=== PATIENT | female | born 1985 | race Caucasian/White ===

== ENCOUNTER 2017-03-15 08:26 | Inpatient (IN) | payer MEDICAID, OTHER ==
[2017-03-15] MEDS ORDERED: NS 1,000 ML IV ONE ×2 (08:43→11:58)
[2017-03-15] MEDS ORDERED: ONDANSETRON 4 MG/2 ML VIAL IVP ONE (08:43)
[2017-03-15] MEDS ORDERED: LORazepam 2 MG/ML INJ IVP ONE ×4 (08:54→11:49)
--- NOTE | 2017-03-15 08:57 | EDPHY ---
H & P Time Seen by Provider: 03/15/17 08:45 HPI/ROS: CHIEF COMPLAINT: Detox HISTORY OF PRESENT ILLNESS: Patient presents from [facility] for nausea and tremor. Her last drink was yesterday at 7:00 p.m.. She presents with increasing tremor anxiety nausea and vomiting. Symptoms severe. Her last bout of sobriety was 2 years ago. Her usual drink is vodka. She has a little bit of diarrhea, she denies , her last menstrual cycle just finished. REVIEW OF SYSTEMS: Eye: no change in vision ENT: no sore throat Cardiac: no chest pain or syncope Pulmonary: no cough or SOB Abdomen: HPI Musculoskeletal: no back pain Skin: no rash Neuro: no headache or seizure Constitutional: no fever : no urinary symptoms A comprehensive 10 point review of systems is otherwise negative aside from elements mentioned in the history of present illness. PAST MEDICAL HISTORY: Alcoholism anxiety and depression Social history: Last alcohol 7:00 p.m. last night General Appearance: Alert and conversant, cooperative. Eyes: No scleral icterus. ENT, Mouth: Dry mucous membranes Respiratory: Normal respiratory effort, breath sounds equal, lungs are clear to auscultation. Cardiovascular: Regular rate and rhythm. Gastrointestinal: Abdomen is soft and non tender. Neurological: Alert and oriented x3. Normally conversant. Face symmetric, normal movement and sensation in all extremities. Very tremulous Skin: Warm and dry, no rashes. Musculoskeletal: No peripheral edema and no joint swelling. Psychiatric: Not agitated. Very anxious. Not hallucinating. Emergency Department course/MDM: Patient presents with acute alcohol withdrawal manifested by tremor and tachycardia. Ativan 2 mg IV. Labs to include chemistries and test. Additional IV ativan 2mg for persistent tremor. 1045: still mildly tremulous, additional 2mg IV ativan. 1145: still symptomatic, additional 2mg IV ativan; 8mg total. Admission to hospitalist service for treatment of alcohol withdrawal with high- dose IV Ativan required. Smoking Status: Never smoked Constitutional: Initial Vital Signs Temperature (C) 36.9 C 03/15/17 08:37 Heart Rate 114 H 03/15/17 08:37 Respiratory Rate 21 H 03/15/17 08:37 Blood Pressure 148/119 H 03/15/17 08:37 O2 Sat (%) 96 03/15/17 08:37 O2 Delivery Mode Room Air Allergies/Adverse Reactions: Penicillins Allergy (Verified 03/15/17 12:25) Hives Home Medications: Medication Instructions Recorded Escitalopram Oxalate [Lexapro] 10 mg PO DAILY 03/15/17 Medical Decision Making Differential Diagnosis: Differential for shaking considered including but not limited to hypoglycemia, alcohol withdrawal, anxiety, seizure disorder Consult/Admit Bed Type: [place] [id number] Critical Care Time: Critical care time spent by me, Dr. Samano, exclusively with the care of this patient was 30 minutes, exclusive of PA or INSURANCE VERIFICATION CLERK time and exclusive of separate procedures. The organ system at risk was neurologic and I ordered multiple doses of IV Ativan for alcohol withdrawal to stabilize the patient and prevent worsening of the patient's condition. - Data Points Laboratory Results: Laboratory Results 03/15/17 08:52 03/15/17 08:52 03/15/17 03/15/17 03/15/17 08:52 08:52 08:52 WBC 3.65 10^3/uL L 10^3/uL (3.80-9.50) RBC 5.43 10^6/uL H 10^6/uL (4.18-5.33) Hgb 17.0 g/dL H g/dL (12.6-16.3) Hct 47.9 % H % (38.0-47.0) MCV 88.2 fL fL (81.5-99.8) MCH 31.3 pg pg (27.9-34.1) MCHC 35.5 g/dL g/dL (32.4-36.7) RDW 13.6 % % (11.5-15.2) Plt Count 410 10^3/uL H 10^3/uL (150-400) MPV 9.1 fL fL (8.7-11.7) Neut % (Auto) 63.1 % % (39.3-74.2) Lymph % (Auto) 26.0 % % (15.0-45.0) [place] % (Auto) 9.0 % % (4.5-13.0) Eos % (Auto) 0.3 % L % (0.6-7.6) Baso % (Auto) 1.1 % % (0.3-1.7) Nucleat RBC Rel Count 0.0 % % (0.0-0.2) Absolute Neuts (auto) 2.30 10^3/uL 10^3/uL (1.70-6.50) Absolute Lymphs (auto) 0.95 10^3/uL L 10^3/uL (1.00-3.00) Absolute Monos (auto) 0.33 10^3/uL 10^3/uL (0.30-0.80) Absolute Eos (auto) 0.01 10^3/uL L 10^3/uL (0.03-0.40) Absolute Basos (auto) 0.04 10^3/uL 10^3/uL (0.02-0.10) Absolute Nucleated RBC 0.00 10^3/uL 10^3/uL (0-0.01) Immature Gran % 0.5 % % (0.0-1.1) Immature Gran # 0.02 10^3/uL 10^3/uL (0.00-0.10) Sodium 141 mEq/L mEq/L (134-144) Potassium 3.9 mEq/L mEq/L (3.5-5.2) Chloride 101 mEq/L mEq/L (97-110) Carbon Dioxide 19 mEq/l L mEq/l (22-31) Anion Gap 21 mEq/L H mEq/L (8-16) BUN 11 mg/dL mg/dL (7-23) Creatinine 0.6 mg/dL mg/dL (0.6-1.0) Estimated GFR > 60 Glucose 89 mg/dL mg/dL (70-100) Calcium 10.1 mg/dL mg/dL (8.5-10.4) Beta HCG, Qual NEGATIVE Medications Given: Discontinued Medications Chlordiazepoxide (Librium 25 Mg Prepack#6) 1 btl [facility] ONE Stop: 03/15/17 09:02 Last Admin: 03/15/17 11:56 Dose: Not Given Sodium Chloride (Ns) 1,000 mls @ 0 mls/hr IV ONCE ONE PRN Reason: Wide Open Stop: 03/15/17 08:44 Last Admin: 03/15/17 09:04 Dose: 1,000 mls Sodium Chloride (Ns) 1,000 mls @ 0 mls/hr IV ONCE ONE PRN Reason: Wide Open Stop: 03/15/17 11:59 Last Admin: 03/15/17 11:58 Dose: 1,000 mls Lorazepam (Ativan Injection) 2 mg IVP EDNOW ONE Stop: 03/15/17 08:55 Last Admin: 03/15/17 09:05 Dose: 2 mg Lorazepam (Ativan Injection) 2 mg IVP EDNOW ONE Stop: 03/15/17 09:37 Last Admin: 03/15/17 09:44 Dose: 2 mg Lorazepam (Ativan Injection) 2 mg IVP EDNOW ONE Stop: 03/15/17 10:46 Last Admin: 03/15/17 10:51 Dose: 2 mg Lorazepam (Ativan Injection) 2 mg IVP EDNOW ONE Stop: 03/15/17 11:50 Last Admin: 03/15/17 11:53 Dose: 2 mg Ondansetron HCl (Zofran) 4 mg IVP EDNOW ONE Stop: 03/15/17 08:44 Last Admin: 03/15/17 09:02 Dose: 4 mg Departure - Departure Disposition: Home, Routine, Self-Care Clinical Impression: Alcohol withdrawal Qualifiers: Complication of substance-induced condition: uncomplicated Qualified Code(s): F10.230 - Alcohol dependence with withdrawal, uncomplicated Condition: Serious
[2017-03-15] MEDS ORDERED: CHLORDIAZEPOXIDE 25MG PREPK#6 BTL TAKEHOME ONE (09:01)
[2017-03-15 09:20] LABS: % IMMATURE GRANULYOCYTES 0.5 % (0.0-1.1); ABSOLUTE IMMATURE GRANULOCYTES 0.02 10^3/uL (0.00-0.10); ADD DIFF? NO; ADD MORPH? NO; ADD SCAN? NO; ATYPICAL LYMPHOCYTE FLAG 0 (0-99); FRAGMENT RBC FLAG 0 (0-99); HEMATOCRIT 47.9 % (38.0-47.0); LEFT SHIFT FLG 0 (0-99); LIPEMIA HEMOLYSIS FLAG 90 (0-99); MEAN CELL HEMOGLOBIN 31.3 pg (27.9-34.1); MEAN CELL HEMOGLOBIN CONCENTR. 35.5 g/dL (32.4-36.7); MEAN CELL VOLUME 88.2 fL (81.5-99.8); MEAN PLATELET VOLUME 9.1 fL (8.7-11.7); PLATELET CLUMPS FLAG 0 (0-99); PLATELET COUNT 410 10^3/uL (150-400); RED BLOOD CELL COUNT 5.43 10^6/uL (4.18-5.33); RED CELL DISTRIBUTION WIDTH 13.6 % (11.5-15.2)
[2017-03-15 09:28] LABS: ANION GAP 21 mEq/L (8-16); CALCIUM 10.1 mg/dL (8.5-10.4); CARBON DIOXIDE 19 mEq/l (22-31); CHLORIDE 101 mEq/L (97-110); CREATININE 0.6 mg/dL (0.6-1.0); GLOMERULAR FILTRATION RATE > 60; GLUCOSE 89 mg/dL (70-100); POTASSIUM 3.9 mEq/L (3.5-5.2); SODIUM 141 mEq/L (134-144)
[2017-03-15] MEDS ORDERED: ONDANSETRON DISINTEGRATING 4 MG TAB PO PRN (14:11)
[2017-03-15] MEDS ORDERED: ONDANSETRON 4 MG/2 ML VIAL IVP PRN (14:11)
--- NOTE | 2017-03-15 14:20 | PDGENHP ---
History and Physical History and Physical: HISTORY AND PHYSICAL CC:Alcohol withdrawal sent from [facility] HISTORY: This patient has previous history of alcohol use, alcohol withdrawal, and sobriety. She has been drinking heavily lately. 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 [facility] for attempted detoxification, but was having too much tachycardia and tremor and they feared she would have bed withdrawal and she was sent to the ER. In the ER she received 9 mg of Ativan but is still having significant symptoms of withdrawal feeling very anxious. She has not been overtly confused and hallucinating. She has been drinking vodka in large amounts on a daily basis unknown quantity. She uses no street drugs or anything of that she might withdrawal from. her last drink of alcohol was last evening Her only other symptoms recently are a illness approximately 1 week ago that involved some nausea vomiting cough and fever and those symptoms are largely resolved though she does not have her appetite back to normal yet. No diarrhea no abdominal pain. 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 I have reviewed the list and ordered appropriate medicines. PHYSICAL EXAMINATION: Vital Signs: some hypertension and tachycardia, respirations good no fever Scabbler: sinus tachycardia Examination: General: alert, oriented, good mentation, fairly anxious Neurologic: There is still some tremor which is mild at this time, no confusion or delusions or hallucinations at this time; normal speech/language, normal animal nutritionist , no focal weakness Skin: warm, dry, good color, no rash HEENT: normal Neck: no mass or jvd Resps: relaxed Lungs: clear breath sounds Heart: tachycardic, regular, no murmur Abdomen: soft, nondistended, nontender, +BS, no mass Upper Extremities: normal Lower Extremities: no edema, warm No Bleeding or bruising IV site: looks normal LABORATORY DATA: some evidence of hemoconcentration, CO2 is slightly low, otherwise unremarkable blood test results ASSESSMENT: - acute alcohol withdrawal, uncontrolled with benzodiazepine at the [facility], and uncontrolled after significant benzodiazepines here in the emergency room -Alcoholism -Suspected thiamine deficiency -Chronic depression on antidepressant medication PLANS: - admission to the icu -IV hydration -Will be can Precedex drip at this time -Benzodiazepine for seizure suppression -Thiamin replacement -Diet and ambulation as able with assistance from nursing staff -Electrolyte replacements -DVT prophylaxis I have reviewed the patient's case in detail with Dr. Srinath Samano
[2017-03-15] MEDS ORDERED: PROTOCOL MAGNESIUM 1 DOSE IV PRN (14:24)
[2017-03-15] MEDS ORDERED: PROTOCOL POTASSIUM 1 DOSE MISC PRN (14:24)
[2017-03-15] MEDS: NS W/ 20 KCl/L 1,000 ML IV SCH (14:30)
[2017-03-15] MEDS: DEXMEDETOMIDINE HCL 400 MCG in NS 100 ML IV SCH ×2 (14:30→23:33)
[2017-03-15] MEDS: LORazepam 1 MG TAB PO SCH ×2 (17:37→23:33)
--- NOTE | 2017-03-15 18:15 | GCON ---
[f rep st] CONSULTATION POOL INSTALLER CONSULTATION REASON FOR ADMISSION: Alcohol withdrawal. HISTORY: The patient is a 32-year-old white female with a past medical history of depression and al coholism. She presents with withdrawals. She entered [facility] today for attempted withdrawal of alcohol ; however, she became tachycardic and tremulous, was sent to the emergency room, where she was subse quently admitted to the intensive care unit. Currently, she is somewhat somnolent on a Precedex dri p. PAST MEDICAL HISTORY: Significant for depression, alcoholism. ALLERGIES: No known allergies to medication. SOCIAL HISTORY: No history of tobacco use. Heavy alcohol use, particularly vodka. 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 PHYSICAL EXAM: VITAL SIGNS: Blood pressure is 129/79, pulse 89, respirations 24, temperature 37.0, oxygen saturation 92% on room air. GENERAL: She is a well-developed, well-nourished, 32-year-old white female who is somnolent but arousable. HEENT: Eyes KRISTOPHER, EOMI. Throat shows no erythema or tonsillar hypertrophy. NECK: Supple. There is no cervical adenopathy. HEART: Regular rate and r hythm without murmurs, rubs, or gallops. LUNGS: Clear to auscultation. No wheeze or rhonchi. ABD OMEN: Soft, nontender. Bowel sounds are present in all 4 quadrants. EXTREMITIES: No clubbing, cy anosis or edema. LABORATORIES: White count 3.6, hemoglobin 17, hematocrit 47, platelet count 410. Sodium 141, potas sium 3.9, chloride 101, CO2 is 19, BUN 11, creatinine 0.6, glucose is 89. IMPRESSION: 1. Acute alcohol withdrawals. 2. History of alcoholism. 3. History of depression. RECOMMENDATIONS: 1. Agree with current CIWA protocol. 2. We will give Precedex. 3. DVT and PE prophylaxis. 4. Stress ulcer prophylaxis. 5. Adequate nutrition. /[id number]/MODL
[2017-03-15 18:42] LABS: POTASSIUM 3.8 mEq/L (3.5-5.2)
[2017-03-15] MEDS ORDERED: POTASSIUM Cl (KCl) 100 ML IV SCH (19:37)
[2017-03-16] MEDS: ACETAMINOPHEN 325 MG TAB PO PRN ×2 (03:04→08:39)
[2017-03-16 05:20] VITALS: O2SAT 97
[2017-03-16 05:37] LABS: % IMMATURE GRANULYOCYTES 0.3 % (0.0-1.1); ABSOLUTE IMMATURE GRANULOCYTES 0.01 10^3/uL (0.00-0.10); ADD DIFF? NO; ADD MORPH? NO; ADD SCAN? NO; ATYPICAL LYMPHOCYTE FLAG 0 (0-99); FRAGMENT RBC FLAG 0 (0-99); HEMATOCRIT 37.8 % (38.0-47.0); HEMOGLOBIN 12.8 g/dL (12.6-16.3); LEFT SHIFT FLG 0 (0-99); LIPEMIA HEMOLYSIS FLAG 90 (0-99); MEAN CELL HEMOGLOBIN 31.1 pg (27.9-34.1); MEAN CELL HEMOGLOBIN CONCENTR. 33.9 g/dL (32.4-36.7); MEAN CELL VOLUME 91.7 fL (81.5-99.8); MEAN PLATELET VOLUME 9.1 fL (8.7-11.7); PLATELET CLUMPS FLAG 0 (0-99); PLATELET COUNT 272 10^3/uL (150-400); RED BLOOD CELL COUNT 4.12 10^6/uL (4.18-5.33); RED CELL DISTRIBUTION WIDTH 13.6 % (11.5-15.2)
[2017-03-16] MEDS: LORazepam 1 MG TAB PO SCH ×2 (05:37→12:17)
[2017-03-16 05:47] LABS: ANION GAP 10 mEq/L (8-16); CALCIUM 8.9 mg/dL (8.5-10.4); CARBON DIOXIDE 19 mEq/l (22-31); CHLORIDE 109 mEq/L (97-110); CREATININE 0.8 mg/dL (0.6-1.0); GLOMERULAR FILTRATION RATE > 60; GLUCOSE 107 mg/dL (70-100); MAGNESIUM 1.9 mg/dL (1.6-2.3); POTASSIUM 4.3 mEq/L (3.5-5.2); SODIUM 138 mEq/L (134-144)
[2017-03-16] MEDS: NS W/ 20 KCl/L 1,000 ML IV SCH (08:39)
[2017-03-16] MEDS ORDERED: MULTIVITAMINS 1 EACH TAB PO SCH (09:00)
[2017-03-16] MEDS ORDERED: ESCITALOPRAM OXALATE 10 MG TAB PO SCH (09:00)
[2017-03-16] MEDS ORDERED: ENOXAPARIN 40 MG/0.4 ML SYR SC SCH (09:00)
--- NOTE | 2017-03-16 09:54 | PDINTPN ---
Skin Pass Operator Progress Note Assessment/Plan: Assessment: * Alcoholism * Alcohol withdrawals-CIWA at 14. -wean Precedex as tolerated. * Mental status oriented x3 Plan: SENIOR ENVIRONMENTAL SCIENTIST Subjective: Awake and alert. Oriented x3. Headache minimal. Still with hallucinations and tremors Objective: Vital Signs Temp Pulse Resp BP Pulse Ox 36.8 C 48 L 24 H 142/83 H 97 03/16/17 07:44 03/16/17 08:00 03/16/17 08:00 03/16/17 07:44 03/16/17 08:00 Laboratory Results 03/16/17 05:30 03/16/17 05:30 03/15/17 03/16/17 03/17/17 05:59 05:59 05:59 Intake Total 4439.8 Balance 4439.8 Physical Exam - Physical Exam General Appearance: alert EENT: PERRL/EOMI, normal ENT inspection, pharynx normal, TMs normal Neck: non-tender, full range of motion, supple, normal inspection Cardiac/Chest: normal peripheral pulses, regular rate, rhythm Peripheral Pulses: 2+: carotid (R), carotid (L), femoral (R), femoral (L), dorsalis-pedis (R), dorsalis-pedis (L) Abdomen: normal bowel sounds, non-tender, soft Pelvic Exam: deferred Rectal: deferred Skin: normal color, warm/dry Extremities: normal range of motion, non-tender, normal inspection, normal capillary refill Neuro/Psych: other (Tremulous) ICD10 Worksheet Patient Problems: Problems Problem Status Onset Alcohol withdrawal Acute
[2017-03-16] MEDS ORDERED: NICOTINE 21 MG/24 HR PATCH TD SCH (10:00)
[2017-03-16 12:02] VITALS: BP 146/72; PULSE 44; RESP 23; TEMP 97.7
--- NOTE | 2017-03-16 13:43 | PDDCSUM ---
Discharge Summary Discharge Summary: DISCHARGE DIAGNOSES: -Acute alcohol withdrawal -Alcoholism CONSULTANTS: Dr. Quinn Kim [facility] COURSE SUMMARY: This patient with known alcoholism and previous alcohol withdrawal came in via [facility]. She entered there voluntarily to detox from alcohol but was having significant anxiety and tremors and was transferred to the ER for further assessment and care. She is admitted to step-down in the intensive care unit overnight where she was treated with Precedex drip as well as low scheduled doses of Ativan. She actually did quite well and at this time has not had any real delirium or other complications. No seizures. This point she is discharged with Librium on a scheduled but tapering dose regimen. She will be under the care of her family her with her here at the bedside. They are all aware to watch for any signs of worsening withdrawal and when to bring her back to the ER. She is at this time expressing significant commitment to remaining sober and to seeking assistance in the way of rehabilitation. She did receive thiamin here in the hospital. MEDICATION CHANGES: Librium starting at 25 mg three times daily for 3 days and then tapering slowly over the next week after that FOLLOW-UP PLAN: With her primary care physician next week at [facility] Greater than 35 minutes bedside and care coordination time today
[2017-03-18] MEDS ORDERED: THIAMINE HCL 100 MG TAB PO SCH (09:00)
== END 2017-03-16 13:59 | disposition home or self-care (01) | DRG 897 ==
LOC: EEVIPCON 11:59 → UNDOADMIN 12:29 → F2N 13:13
PROVIDERS: ADMIT Internal Medicine; ATTEND Internal Medicine
PROC: HZ2ZZZZ Detoxification Services for Substance Abuse Treatment (ICD-10-PCS; principal; 2017-03-15)
DX: F10.231 Alcohol dependence with withdrawal delirium (principal); F32.9 Major depressive disorder, single episode, unspecified
CPT/HCPCS: 96374; J1650; J2060; J2405

== ENCOUNTER 2017-04-06 02:29 | Inpatient (IN) | payer MEDICAID ==
[2017-04-06] MEDS ORDERED: PHENobarbital NA 130 MG/ML VIAL IVP ONE (02:47)
[2017-04-06] MEDS ORDERED: LORazepam 2 MG/ML INJ ONE ×2 (02:47→06:37)
[2017-04-06] MEDS ORDERED: NS 1,000 ML IV ONE ×2 (02:47→03:25)
[2017-04-06] MEDS ORDERED: LORazepam 2 MG/ML INJ IVP ONE ×2 (02:47→03:15)
--- NOTE | 2017-04-06 02:50 | EDPHY ---
H & P Stated Complaint: ETOH w/d Time Seen by Provider: 04/06/17 02:38 HPI/ROS: HPI The patient presents with concern for alcohol withdrawal, last drink at approximately 8:00 p.m. last night. She has been drinking heavily over the last several weeks. His 2 days ago, she thinks she may have had an alcohol withdrawal seizure. This was witnessed by her boyfriend. She has not had any nausea or vomiting. She is feeling very anxious and confused. She has not eaten anything in the last 2 days.. REVIEW OF SYSTEMS Constitutional: No fever, no chills. Eyes: No discharge. ENT: No sore throat. Cardiovascular: No chest pain, no palpitations. Respiratory: No cough, no shortness of breath. Gastrointestinal: No abdominal pain, no vomiting. Genitourinary: No hematuria. Musculoskeletal: No back pain. Skin: No rashes. Neurological: No headache. 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 PHYSICAL General Appearance: Alert, anxious and tremulous Eyes: Pupils equal and round no pallor or injection ENT, Mouth: Mucous membranes moist Respiratory: There are no retractions, lungs are clear to auscultation Cardiovascular: Tachycardic Gastrointestinal: Abdomen is soft and non-tender, no masses, bowel sounds normal Neurological: A&O, moves all extremities, hand tremor is present Skin: Warm and dry, no rashes Musculoskeletal: Neck is supple non tender Extremities: symmetrical, full range of motion Psychiatric: Patient is oriented X 3, there is no agitation Source: Patient, Old records Exam Limitations: No limitations - Personal History LMP (Females 10-55): 1-7 Days Ago Current Tetanus/Diphtheria Vaccine: Yes Current Tetanus Diphtheria and Acellular Pertussis (TDAP): Yes - Medical/Surgical History Hx Asthma: No Hx Chronic Respiratory Disease: No Hx Diabetes: No Hx Cardiac Disease: No Hx Renal Disease: No Hx Cirrhosis: No Hx Alcoholism: Yes Hx HIV/AIDS: No Hx Splenectomy or Spleen Trauma: No Other PMH: Anxiety, depression, alcoholism - Social History Smoking Status: Current some day smoker Constitutional: Initial Vital Signs Temperature (C) 36.9 C 08/26/17 02:31 Heart Rate 135 H 04/06/17 02:31 Respiratory Rate 16 04/06/17 02:31 Blood Pressure 138/113 H 04/06/17 02:31 O2 Sat (%) 95 04/06/17 02:31 O2 Delivery Mode Nasal Cannula O2 (L/minute) 2 Allergies/Adverse Reactions: Penicillins Allergy (Verified 04/06/17 02:31) Hives Home Medications: Medication Instructions Recorded Escitalopram Oxalate [Lexapro 10 10 mg PO DAILY 03/15/17 MG] Nicotine [Nicoderm Cq 21 mg (*)] 21 mg TD DAILY patch 03/16/17 Ondansetron Odt [Zofran Odt 4 mg 4 mg PO Q4HRS PRN #12 tab 03/16/17 (*)] chlordiazePOXIDE [Librium 25 mg 25 mg PO AD #18 cap 03/16/17 (*)] Medical Decision Making Differential Diagnosis: This is a 32-year-old female with history of alcohol abuse who presents with alcohol withdrawal, last drink last night. Has been drinking heavily to the point of blacking out. She has a history of alcohol withdrawal requiring admission to the ICU to received Precedex. Upon arrival, she is tachycardic, tremulous, uncomfortable appearing. Differential diagnosis includes alcohol withdrawal, dehydration, alcoholic ketoacidosis. In the emergency department, basic labs were checked and were relatively unremarkable. She does seem to be hemoconcentrated. She was treated with IV fluids, Ativan, phenobarbital. She was able to sleep for several hours, however upon awakening, heart rate continues to be elevated in the 120s to 130s. She still feels tremulous and her boyfriend reports that she is hallucinating. I do not feel she is suitable for discharge at this time. I plan to admit her to the hospital. I have consulted with the hospitalist Dr. Gaviria and patient will be admitted to the step-down unit. - Data Points Laboratory Results: Laboratory Results 04/06/17 02:55 04/06/17 02:55 04/06/17 04/06/17 02:55 02:55 WBC 5.74 10^3/uL 10^3/uL (3.80-9.50) RBC 5.40 10^6/uL H 10^6/uL (4.18-5.33) Hgb 17.2 g/dL H g/dL (12.6-16.3) Hct 48.2 % H % (38.0-47.0) MCV 89.3 fL fL (81.5-99.8) MCH 31.9 pg pg (27.9-34.1) MCHC 35.7 g/dL g/dL (32.4-36.7) RDW 15.7 % H % (11.5-15.2) Plt Count 461 10^3/uL H 10^3/uL (150-400) MPV 8.7 fL fL (8.7-11.7) Neut % (Auto) 54.2 % % (39.3-74.2) Lymph % (Auto) 32.1 % % (15.0-45.0) [place] % (Auto) 10.5 % % (4.5-13.0) Eos % (Auto) 1.6 % % (0.6-7.6) Baso % (Auto) 1.4 % % (0.3-1.7) Nucleat RBC Rel Count 0.0 % % (0.0-0.2) Absolute Neuts (auto) 3.12 10^3/uL 10^3/uL (1.70-6.50) Absolute Lymphs (auto) 1.84 10^3/uL 10^3/uL (1.00-3.00) Absolute Monos (auto) 0.60 10^3/uL 10^3/uL (0.30-0.80) Absolute Eos (auto) 0.09 10^3/uL 10^3/uL (0.03-0.40) Absolute Basos (auto) 0.08 10^3/uL 10^3/uL (0.02-0.10) Absolute Nucleated RBC 0.00 10^3/uL 10^3/uL (0-0.01) Immature Gran % 0.2 % % (0.0-1.1) Immature Gran # 0.01 10^3/uL 10^3/uL (0.00-0.10) Sodium 144 mEq/L mEq/L (134-144) Potassium 4.0 mEq/L mEq/L (3.5-5.2) Chloride 102 mEq/L mEq/L (97-110) Carbon Dioxide 21 mEq/l L mEq/l (22-31) Anion Gap 21 mEq/L H mEq/L (8-16) BUN 10 mg/dL mg/dL (7-23) Creatinine 0.8 mg/dL mg/dL (0.6-1.0) Estimated GFR > 60 Glucose 109 mg/dL H mg/dL (70-100) Calcium 10.2 mg/dL mg/dL (8.5-10.4) Magnesium 2.2 mg/dL mg/dL (1.6-2.3) Total Bilirubin 1.2 mg/dL mg/dL (0.1-1.4) AST 58 IU/L H IU/L (14-46) ALT 43 IU/L IU/L (9-52) Alkaline Phosphatase 76 IU/L IU/L (38-126) Total Protein 9.1 g/dL H g/dL (6.3-8.2) Albumin 5.3 g/dL H g/dL (3.5-5.0) Medications Given: Discontinued Medications Sodium Chloride (Ns) 1,000 mls @ 0 mls/hr IV EDNOW ONE; Wide Open PRN Reason: Protocol Stop: 04/06/17 02:48 Last Admin: 04/06/17 02:55 Dose: 1,000 mls Sodium Chloride (Ns) 1,000 mls @ 0 mls/hr IV ONCE ONE PRN Reason: Wide Open Stop: 04/06/17 03:26 Last Admin: 04/06/17 03:25 Dose: 1,000 mls Lorazepam (Ativan Injection) 2 mg IVP EDNOW ONE Stop: 04/06/17 02:48 Last Admin: 04/06/17 02:57 Dose: 2 mg Phenobarbital Sodium (Phenobarbital) 260 mg IVP ONCE ONE Stop: 04/06/17 02:48 Last Admin: 04/06/17 03:23 Dose: 260 mg Departure - Departure Disposition: [facility] Clinical Impression: Alcohol withdrawal Qualifiers: Complication of substance-induced condition: with perceptual disturbance Qualified Code(s): F10.232 - Alcohol dependence with withdrawal with perceptual disturbance Condition: Fair Referrals: NONE *PRIMARY CARE P,. [Primary Care Provider] - As per Instructions
[2017-04-06 03:04] LABS: % IMMATURE GRANULYOCYTES 0.2 % (0.0-1.1); ABSOLUTE IMMATURE GRANULOCYTES 0.01 10^3/uL (0.00-0.10); ADD DIFF? NO; ADD MORPH? NO; ADD SCAN? NO; ATYPICAL LYMPHOCYTE FLAG 0 (0-99); FRAGMENT RBC FLAG 0 (0-99); HEMATOCRIT 48.2 % (38.0-47.0); HEMOGLOBIN 17.2 g/dL (12.6-16.3); LEFT SHIFT FLG 0 (0-99); LIPEMIA HEMOLYSIS FLAG 90 (0-99); MEAN CELL HEMOGLOBIN 31.9 pg (27.9-34.1); MEAN CELL HEMOGLOBIN CONCENTR. 35.7 g/dL (32.4-36.7); MEAN CELL VOLUME 89.3 fL (81.5-99.8); MEAN PLATELET VOLUME 8.7 fL (8.7-11.7); PLATELET CLUMPS FLAG 0 (0-99); PLATELET COUNT 461 10^3/uL (150-400); RED CELL DISTRIBUTION WIDTH 15.7 % (11.5-15.2)
[2017-04-06 03:22] LABS: ALANINE AMINOTRANSFERASE 43 IU/L (9-52); ALBUMIN 5.3 g/dL (3.5-5.0); ALKALINE PHOSPHATASE 76 IU/L (38-126); ANION GAP 21 mEq/L (8-16); ASPARTATE AMINOTRANSFERASE 58 IU/L (14-46); BILIRUBIN,TOTAL 1.2 mg/dL (0.1-1.4); CALCIUM 10.2 mg/dL (8.5-10.4); CARBON DIOXIDE 21 mEq/l (22-31); CHLORIDE 102 mEq/L (97-110); CREATININE 0.8 mg/dL (0.6-1.0); GLOMERULAR FILTRATION RATE > 60; GLUCOSE 109 mg/dL (70-100); MAGNESIUM 2.2 mg/dL (1.6-2.3); SODIUM 144 mEq/L (134-144); TOTAL PROTEIN 9.1 g/dL (6.3-8.2)
[2017-04-06] MEDS ORDERED: ONDANSETRON 4 MG/2 ML VIAL IVP ONE (06:43)
[2017-04-06] MEDS ORDERED: ONDANSETRON 4 MG/2 ML VIAL ONE (06:45)
[2017-04-06] MEDS ORDERED: ONDANSETRON 4 MG/2 ML VIAL IVP PRN (06:53)
[2017-04-06] MEDS ORDERED: oxyCODONE IR 5 MG TAB PO PRN (06:53)
[2017-04-06] MEDS ORDERED: MAG HYDROX/AL HYDROX/SIMETH 30 ML UDCUP PO PRN (06:53)
[2017-04-06] MEDS ORDERED: THIAMINE HCL 500 MG in NS 100 ML IV ONE (06:53)
[2017-04-06] MEDS ORDERED: PROMETHAZINE HCL 25 MG/ML INJ IVP PRN (06:53)
--- NOTE | 2017-04-06 07:01 | PDGENHP ---
History and Physical - Chief Complaint alcohol withdrawal - History of Present Illness 32 yo F with PMH of etoh abuse and withdrawal presenting with alcohol withdrawal after voluntarily deciding to quit drinking earlier today. She notes her last drink was sometime around 8pm and several hours after that she began to feel tremulous and anxious. Those sxs got worse and she elected to come to the ER. She has been in the ER 4 hours and has received 4mg of ativan as well as 260mg phenobarbital without very much improvement in her symptoms. The last time she attempted to quit drinking she required precedex gtt and stay in ICU. Her boyfriend notes that 2 nights ago, several hours after her last drink, she had what appeared to be a seizure. He believe she has been intermittently hallucinating. She has not eaten any food for 2 days. She is nauseated but otherwise denies any other sxs along with her w/d sxs such as fever, chills, abdominal pain, sob etc. History Information - Allergies/Home Medication List Allergies/Adverse Reactions: Penicillins Allergy (Verified 04/06/17 02:31) Hives Home Medications: Escitalopram Oxalate [Lexapro 10 MG] 10 mg PO DAILY 03/15/17 [Last Taken ] I have personally reviewed and updated: family history, medical history, social history, surgical history - Past Medical History psychiatric history (depression) Additional medical history: alcohol abuse and withdrawal - Surgical History Reports: no pertinent surgical hx - Family History Positive for: non-pertinent - Social History Smoking Status: Current some day smoker Alcohol Use: Heavy (10+ shots of vodka per day) Drug Use: None Additional social history: has boyfriend accompanying her here today Review of Systems ROS: 10pt was reviewed & negative except for what was stated in HPI & below Physical Exam Temp Pulse Resp BP Pulse Ox 36.9 C 127 H 18 111/74 94 04/06/17 02:31 04/06/17 06:00 04/06/17 06:00 04/06/17 06:00 04/06/17 06:00 Constitutional: uncomfortable, unkempt Eyes: PERRL, anicteric sclera Ears, Nose, Mouth, Throat: moist mucous membranes, hearing normal Cardiovascular: no murmur, rub, or gallop, tachycardia, No edema Respiratory: no respiratory distress, no rales or rhonchi, clear to auscultation Gastrointestinal: soft, non-tender abdomen, No normoactive bowel sounds, No tenderness, No guarding, No rebound Genitourinary: no bladder tenderness Skin: warm, normal color Musculoskeletal: full muscle strength, no muscle tenderness Neurologic: AAOx3, other (tremulous, agitated) Psychiatric: interacting appropriately, anxious Lab Data & Imaging Review 04/06/17 02:55 04/06/17 02:55 WBC 5.74 10^3/uL (3.80-9.50) 04/06/17 02:55 RBC 5.40 10^6/uL (4.18-5.33) H 04/06/17 02:55 Hgb 17.2 g/dL (12.6-16.3) H 04/06/17 02:55 Hct 48.2 % (38.0-47.0) H 04/06/17 02:55 MCV 89.3 fL (81.5-99.8) 04/06/17 02:55 MCH 31.9 pg (27.9-34.1) 04/06/17 02:55 MCHC 35.7 g/dL (32.4-36.7) 04/06/17 02:55 RDW 15.7 % (11.5-15.2) H 04/06/17 02:55 Plt Count 461 10^3/uL (150-400) H 04/06/17 02:55 MPV 8.7 fL (8.7-11.7) 04/06/17 02:55 Neut % (Auto) 54.2 % (39.3-74.2) 04/06/17 02:55 Lymph % (Auto) 32.1 % (15.0-45.0) 04/06/17 02:55 [place] % (Auto) 10.5 % (4.5-13.0) 04/06/17 02:55 Eos % (Auto) 1.6 % (0.6-7.6) 04/06/17 02:55 Baso % (Auto) 1.4 % (0.3-1.7) 04/06/17 02:55 Nucleat RBC Rel Count 0.0 % (0.0-0.2) 04/06/17 02:55 Absolute Neuts (auto) 3.12 10^3/uL (1.70-6.50) 04/06/17 02:55 Absolute Lymphs (auto) 1.84 10^3/uL (1.00-3.00) 04/06/17 02:55 Absolute Monos (auto) 0.60 10^3/uL (0.30-0.80) 04/06/17 02:55 Absolute Eos (auto) 0.09 10^3/uL (0.03-0.40) 04/06/17 02:55 Absolute Basos (auto) 0.08 10^3/uL (0.02-0.10) 04/06/17 02:55 Absolute Nucleated RBC 0.00 10^3/uL (0-0.01) 04/06/17 02:55 Immature Gran % 0.2 % (0.0-1.1) 04/06/17 02:55 Immature Gran # 0.01 10^3/uL (0.00-0.10) 04/06/17 02:55 Sodium 144 mEq/L (134-144) 04/06/17 02:55 Potassium 4.0 mEq/L (3.5-5.2) 04/06/17 02:55 Chloride 102 mEq/L (97-110) 04/06/17 02:55 Carbon Dioxide 21 mEq/l (22-31) L 04/06/17 02:55 Anion Gap 21 mEq/L (8-16) H 04/06/17 02:55 BUN 10 mg/dL (7-23) 04/06/17 02:55 Creatinine 0.8 mg/dL (0.6-1.0) 04/06/17 02:55 Estimated GFR > 60 04/06/17 02:55 Glucose 109 mg/dL (70-100) H 04/06/17 02:55 Calcium 10.2 mg/dL (8.5-10.4) 04/06/17 02:55 Magnesium 2.2 mg/dL (1.6-2.3) 04/06/17 02:55 Total Bilirubin 1.2 mg/dL (0.1-1.4) 04/06/17 02:55 AST 58 IU/L (14-46) H 04/06/17 02:55 ALT 43 IU/L (9-52) 04/06/17 02:55 Alkaline Phosphatase 76 IU/L (38-126) 04/06/17 02:55 Total Protein 9.1 g/dL (6.3-8.2) H 04/06/17 02:55 Albumin 5.3 g/dL (3.5-5.0) H 04/06/17 02:55 Assessment & Plan Assessment: Alcohol withdrawal (Acute) 32 yo F with PMH of heavy etoh abuse presenting with etoh w/d # etoh w/d: patient withdrawing only several hours after her last drink and reporting having a seizure only several hours after her last drink a couple of days ago all in all suggesting she is very high risk for w/d seizures and DTs-- will attempt to add an etoh level to her arrival labs. Has required high doses of ativan with only marginal control of her sxs. Plan for now will be to admit to SDU on CIWA protocol, will add scheduled librium and if sxs cannot be controlled on librium and ciwa will start precedex. She states she is very motivated to quit and does not have the resources for an IP detox stay but is interested to hear more about what the options are so CM will need to be involved. Will start MVI/thiamine/folate. High risk for refeeding syndrome and will monitory electrolytes closely. # polycythemia: appears hypovolemic and has had very poor po intake, will continue IVF and recheck # AGMA: likely 2/2 starvation/alcoholic ketoacidosis, will check lactate and UA to eval further # dispo: observation status for now, given high risk for severe withdrawal she may require >48 hours and IP stay but remains to be seen Patient new to my care. Old records reviewed/summarized as above. Care plan reviewed with ER doctor including plans for SDU.
[2017-04-06 07:35] LABS: ETHANOL SERUM 211 mg/dL (0-10)
[2017-04-06] MEDS: FOLIC ACID 1 MG TAB PO SCH (08:14)
[2017-04-06] MEDS: MULTIVITAMINS 1 EACH TAB PO SCH (08:14)
[2017-04-06] MEDS: LORazepam 1 MG TAB PO PRN ×3 (08:14→16:56)
[2017-04-06] MEDS: NS 1,000 ML IV SCH ×3 (08:17→20:23)
[2017-04-06] MEDS: LORazepam 2 MG/ML INJ IVP PRN ×3 (08:42→20:22)
[2017-04-06] MEDS: NICOTINE 21 MG/24 HR PATCH TD SCH (09:35)
[2017-04-06 09:51] LABS: COLOR BLUE; LEUKOCYTE ESTERASE,URINE 2+ (NEGATIVE); NITRITE,URINE POSITIVE (NEGATIVE)
[2017-04-06 09:55] LABS: BACTERIA TRACE /hpf (NONE SEEN); MUCUS 3+ /lpf (NONE-1+); WBC,URINE 50-182 /hpf (0-3)
[2017-04-06 11:25] LABS: PHENCYCLIDINE URINE BCH < 6 ng/ml (NEGATIVE); PHENCYCLIDINE URINE BCH NEGATIVE (NEGATIVE); TETRAHYDROCANNABINOL URINE < 5 ng/mL (NEGATIVE); TETRAHYDROCANNABINOL URINE NEGATIVE (NEGATIVE)
[2017-04-06] MEDS: ENOXAPARIN 40 MG/0.4 ML SYR SC SCH (11:30)
--- NOTE | 2017-04-06 13:37 | HOSPPROG ---
Hospitalist Progress Note Assessment/Plan: Alcohol withdrawal - CIWA's 25, requiring high doses of Ativan. -Cont scheduled librium, prn ativan, ICU care -may require precedex, which is ordered if needed -thiamine, folic acid, vits Polysubstance abuse - endorses "casual" cocaine use, UDS positive for amphetamine UTI - oral bactrim, await culture Polycythemia - suspect hemoconcentration, cont IVF's, follow AGMA - likely secondary to etoh, cont IVF's Full code Dispo - cont obs, CM to discuss resources Subjective: PT is anxious, tremulous, no fever. Denies urinary symptoms. No fevers. Objective: Vital Signs Temp Pulse Resp BP Pulse Ox 36.8 C 136 H 25 H 118/79 100 04/06/17 08:23 04/06/17 12:00 04/06/17 12:00 04/06/17 12:00 04/06/17 12:00 04/05/17 04/06/17 04/07/17 05:59 05:59 05:59 Intake Total 1999 Balance 1999 - Physical Exam Constitutional: no apparent distress Eyes: PERRL Ears, Nose, Mouth, Throat: moist mucous membranes Cardiovascular: tachycardia Respiratory: no respiratory distress Gastrointestinal: normoactive bowel sounds Genitourinary: no bladder fullness Skin: warm Musculoskeletal: full muscle strength Neurologic: AAOx3 Psychiatric: interacting appropriately ICD10 Worksheet Patient Problems: Problems Problem Status Onset Alcohol withdrawal Acute
[2017-04-06] MEDS ORDERED: DEXMEDETOMIDINE HCL 400 MCG in NS 100 ML IV SCH (14:00)
[2017-04-06] MEDS: SULFAMETHOX/TMP 800/160 MG 1 TAB PO SCH ×2 (14:16→20:21)
--- NOTE | 2017-04-06 14:22 | GCON ---
[f rep st] CONSULTATION PULMONARY CRITICAL CARE CONSULTATION DATE OF CONSULTATION: 04/06/2017 REASON FOR CONSULTATION: Intensive care unit evaluation, management of alcohol withdrawal. HISTORY: The patient is a pleasant 32-year-old who was admitted early this morning for alcohol with drawal. She drinks heavily, approximately ten 2-ounce shooters per day. She was here within the for alcohol withdrawal. Yesterday, she decided she would quit drinking. Her last drink wa s in the afternoon yesterday. She subsequently became tremulous and anxious and presented to the em ergency department where she was given Ativan and phenobarbital. She was admitted to the intensive care unit. There is a questionable history of a seizure a couple of days ago per her boyfriend. Juliano hobbs has had associated nausea and poor oral intake. PAST MEDICAL HISTORY: Remarkable for depression, alcohol abuse and withdrawal. MEDICATIONS: Her only home medication is Lexapro. DRUG ALLERGIES: Penicillins. SOCIAL HISTORY: Negative for alcoholism in her immediate family. A half-sister may have some probl ems with alcohol. REVIEW OF SYSTEMS: 10-point review of systems is otherwise negative. PHYSICAL EXAMINATION: GENERAL: Reveals a woman who is somewhat anxious, tachycardic, and tremulous . She is appropriate, conversant, oriented x3. VITAL SIGNS: Blood pressure is 120/80, heart rate 125 with sinus tachycardia on the monitor. Respiratory rate is 20. On 2 L, saturations are 100%, 9 4% on room air. She is afebrile. HEENT: Unremarkable for lymphadenopathy or thyromegaly. There i s no obvious jugular venous distention. The sclerae are not icteric. CHEST: Clear bilaterally. H EART: Tachycardic. There is a soft systolic murmur. ABDOMEN: Soft, nontender. Bowel sounds are present. There is no obvious organomegaly. EXTREMITIES: Without edema, cords, or tenderness. JACK ROLOGIC: Nonfocal. She does have a significant tremor and is somewhat anxious/hypermetabolic. She is oriented x3. DATABASE: White blood cell count is 5700, hematocrit 48, platelets are 461,000. Venous lactate on admission was 2.2. Sodium is 144, potassium 4.0, CO2 21, with anion gap of 21. BUN is 10 with crea tinine 0.8. Glucose 109, calcium 10.2. Magnesium is 2.2. Bilirubin is 1.2 with an AST of 58 and a n ALT of 43. Albumin is reported at 5.3. Urinalysis showed white blood cells, bacteria, and was po sitive for urinary nitrates. Leukocyte esterase was also positive. Urine cultures pending. ASSESSMENT: 1. Alcohol withdrawal: The patient has a history of significant alcohol abuse with a previous [facility] admission. She now wants to stop drinking and comes in with significant alcohol withdrawal. Her CIWA score is currently about 15. She is receiving Librium and p.r.n. Ativan. Precedex can be use d if needed but is not indicated at this time. She is on thiamine, folic acid, and multivitamins. Her withdrawal is associated with some nausea. She may have associated gastritis. Famotidine will be added to her regimen. She will be kept in the intensive care unit. 2. Urinary tract infection: Her UA indicates a UTI. Cultures are pending. She does not have much in the way of symptoms; however, this may be masked secondary to her alcohol withdrawal. I will le ave coverage and treatment of this up to the hospitalist. 3. Metabolic: Anion gap acidosis is present, likely secondary to alcohol. Current treatments are appropriate. Doubt sepsis. 4. 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 Amphetamines were positive on admission. PLAN AND RECOMMENDATIONS: The patient will be kept in the intensive care unit on the CIWA protocol. Precedex can be used if needed. Librium may need to be increased, as she is on a relatively low d ose at this point in time. Ativan will be continued on a p.r.n. basis. Intravenous fluids will be continued. Famotidine will be added. Treatment for a possible urinary tract infection will be cons idered. Further plans and recommendations will be made based on her progress over the next 12-24 hours. /[id number]/MODL
[2017-04-06] MEDS: ACETAMINOPHEN 325 MG TAB PO PRN ×2 (14:31→20:21)
[2017-04-06] MEDS ORDERED: chlordiazePOXIDE 25 MG CAP PO SCH (16:00)
[2017-04-06] MEDS: chlordiazePOXIDE 25 MG CAP PO SCH ×2 (16:18→21:07)
[2017-04-06] MEDS: ONDANSETRON DISINTEGRATING 4 MG TAB PO PRN (20:22)
[2017-04-07] MEDS: ONDANSETRON DISINTEGRATING 4 MG TAB PO PRN ×2 (00:48→04:41)
[2017-04-07] MEDS: LORazepam 1 MG TAB PO PRN ×5 (00:48→21:07)
[2017-04-07] MEDS: LORazepam 2 MG/ML INJ IVP PRN ×2 (03:07→23:53)
[2017-04-07 05:12] LABS: % IMMATURE GRANULYOCYTES 0.2 % (0.0-1.1); ABSOLUTE IMMATURE GRANULOCYTES 0.01 10^3/uL (0.00-0.10); ADD DIFF? NO; ADD MORPH? NO; ADD SCAN? NO; ATYPICAL LYMPHOCYTE FLAG 0 (0-99); FRAGMENT RBC FLAG 0 (0-99); HEMATOCRIT 37.2 % (38.0-47.0); HEMOGLOBIN 12.6 g/dL (12.6-16.3); LEFT SHIFT FLG 0 (0-99); LIPEMIA HEMOLYSIS FLAG 90 (0-99); MEAN CELL HEMOGLOBIN 31.7 pg (27.9-34.1); MEAN CELL HEMOGLOBIN CONCENTR. 33.9 g/dL (32.4-36.7); MEAN CELL VOLUME 93.5 fL (81.5-99.8); MEAN PLATELET VOLUME 9.1 fL (8.7-11.7); PLATELET CLUMPS FLAG 0 (0-99); PLATELET COUNT 297 10^3/uL (150-400); RED BLOOD CELL COUNT 3.98 10^6/uL (4.18-5.33); RED CELL DISTRIBUTION WIDTH 14.8 % (11.5-15.2)
[2017-04-07 05:30] LABS: ANION GAP 5 mEq/L (8-16); CALCIUM 8.9 mg/dL (8.5-10.4); CARBON DIOXIDE 25 mEq/l (22-31); CHLORIDE 103 mEq/L (97-110); CREATININE 0.8 mg/dL (0.6-1.0); GLOMERULAR FILTRATION RATE > 60; GLUCOSE 77 mg/dL (70-100); MAGNESIUM 1.9 mg/dL (1.6-2.3); POTASSIUM 3.7 mEq/L (3.5-5.2); SODIUM 133 mEq/L (134-144)
[2017-04-07] MEDS: MULTIVITAMINS 1 EACH TAB PO SCH (08:36)
[2017-04-07] MEDS: SULFAMETHOX/TMP 800/160 MG 1 TAB PO SCH ×2 (08:36→21:07)
[2017-04-07] MEDS: THIAMINE HCL 100 MG TAB PO SCH (08:36)
[2017-04-07] MEDS: chlordiazePOXIDE 25 MG CAP PO SCH ×3 (08:36→21:06)
[2017-04-07] MEDS: FOLIC ACID 1 MG TAB PO SCH (08:36)
[2017-04-07] MEDS: NICOTINE 21 MG/24 HR PATCH TD SCH (08:37)
[2017-04-07] MEDS: ENOXAPARIN 40 MG/0.4 ML SYR SC SCH (08:37)
--- NOTE | 2017-04-07 11:32 | PDINTPN ---
Cilnical Scientist Progress Note Assessment/Plan: Assessment: ETOH withdrawal. Doing well. CIWA score approximately 6 this morning. On scheduled Librium at 50 three times daily, appropriate for now. Not needing Precedex. Drug abuse. I think this is more of a problem than she admitted to on admission. High amphetamines noted. Recommend TLC/psychiatric consultation prior to discharge. Metabolic: No issues identified. Urinary tract infection: On Bactrim. Starting to grow gram-negative cesario. Plan: Continue CIWA protocol, Librium at 50 three times daily. We may be able to decrease this tomorrow. Continue p.r.n. Ativan if needed. Continued thiamin , other medication. Continue Bactrim for urinary tract infection. Await I and D of the gram-negative cesario. Subjective: Sleeping, arousable, appropriate. Still with some tremor but better. Not hungry Objective: Vital Signs Temp Pulse Resp BP Pulse Ox 36.5 C 109 H 15 105/61 96 04/07/17 08:00 04/07/17 08:00 04/07/17 08:00 04/07/17 08:00 04/07/17 08:00 Laboratory Results 04/07/17 04:35 04/07/17 04:35 04/06/17 04/07/17 04/08/17 05:59 05:59 05:59 Intake Total 5958 Balance 5958 Laboratory Tests 04/07/17 04:35 Calcium 8.9 Phosphorus 3.7 Magnesium 1.9 Physical Exam - Physical Exam General Appearance: other (Sleeping/sedated. Arousable, responds.) EENT: PERRL/EOMI, other (On room air) Neck: normal inspection Respiratory: lungs clear Cardiac/Chest: regular rate, rhythm, tachycardia (Sinus tachycardia at times, regular in rhythm in 80s at times) Abdomen: normal bowel sounds, non-tender, soft Skin: normal color, warm/dry Neuro/Psych: no motor/sensory deficits, other (Tremor persists, clearly less. Oriented x3. Still somewhat hyperdynamic, anxious), No cognition abnormalities ICD10 Worksheet Patient Problems: Problems Problem Status Onset Alcohol withdrawal Acute
--- NOTE | 2017-04-07 11:34 | HOSPPROG ---
Hospitalist Progress Note Assessment/Plan: Alcohol withdrawal - CIWA's 7-12 overnight, down from 25 yesterday since increased librium dose -Cont scheduled librium, likely reduce dose tomorrow -prn ativan -thiamine, folic acid, vits Polysubstance abuse - endorses "casual" cocaine use, UDS positive for amphetamine UTI - oral bactrim, await culture AGMA - likely secondary to etoh, resolved with IVF's Full code Dispo - change to inpt for ongoing care of alcohol withdrawal, transfer to med/ surg Subjective: Pt is sleepy this am, awakens to verbal stimuli, but not very interactive. Objective: Vital Signs Temp Pulse Resp BP Pulse Ox 36.5 C 109 H 15 105/61 96 04/07/17 08:00 04/07/17 08:00 04/07/17 08:00 04/07/17 08:00 04/07/17 08:00 Laboratory Results 04/07/17 04:35 04/07/17 04:35 04/06/17 04/07/17 04/08/17 05:59 05:59 05:59 Intake Total 5958 Balance 5958 - Physical Exam Constitutional: no apparent distress Eyes: PERRL Ears, Nose, Mouth, Throat: moist mucous membranes Cardiovascular: regular rate and rhythym Respiratory: no respiratory distress Gastrointestinal: normoactive bowel sounds, soft, non-tender abdomen Skin: warm Musculoskeletal: full muscle strength Neurologic: AAOx3 Psychiatric: interacting appropriately ICD10 Worksheet Patient Problems: Problems Problem Status Onset Alcohol withdrawal Acute
[2017-04-08] MEDS: LORazepam 1 MG TAB PO PRN ×2 (04:50→13:10)
[2017-04-08 04:59] LABS: % IMMATURE GRANULYOCYTES 0.2 % (0.0-1.1); ABSOLUTE IMMATURE GRANULOCYTES 0.01 10^3/uL (0.00-0.10); ADD DIFF? NO; ADD MORPH? NO; ADD SCAN? NO; ATYPICAL LYMPHOCYTE FLAG 0 (0-99); FRAGMENT RBC FLAG 0 (0-99); HEMATOCRIT 37.9 % (38.0-47.0); HEMOGLOBIN 12.8 g/dL (12.6-16.3); LEFT SHIFT FLG 0 (0-99); LIPEMIA HEMOLYSIS FLAG 90 (0-99); MEAN CELL HEMOGLOBIN 31.6 pg (27.9-34.1); MEAN CELL HEMOGLOBIN CONCENTR. 33.8 g/dL (32.4-36.7); MEAN CELL VOLUME 93.6 fL (81.5-99.8); MEAN PLATELET VOLUME 9.1 fL (8.7-11.7); PLATELET CLUMPS FLAG 0 (0-99); PLATELET COUNT 273 10^3/uL (150-400); RED BLOOD CELL COUNT 4.05 10^6/uL (4.18-5.33); RED CELL DISTRIBUTION WIDTH 14.6 % (11.5-15.2)
[2017-04-08 05:10] LABS: ANION GAP 8 mEq/L (8-16); CALCIUM 8.3 mg/dL (8.5-10.4); CARBON DIOXIDE 22 mEq/l (22-31); CHLORIDE 106 mEq/L (97-110); CREATININE 0.7 mg/dL (0.6-1.0); GLOMERULAR FILTRATION RATE > 60; GLUCOSE 78 mg/dL (70-100); MAGNESIUM 1.5 mg/dL (1.6-2.3); POTASSIUM 3.6 mEq/L (3.5-5.2); SODIUM 136 mEq/L (134-144)
--- NOTE | 2017-04-08 09:37 | PDINTPN ---
Road Cutter Progress Note Assessment/Plan: Assessment/Plan: * ETOH withdrawal. Doing well. CIWA score approximately 13 this morning. On scheduled Librium at 50 three times daily, appropriate for now. Not needing Precedex. * Drug abuse. I think this is more of a problem than she admitted to on admission. High amphetamines noted. Recommend TLC/psychiatric consultation prior to discharge. * Metabolic: No issues identified. * Urinary tract infection: On Bactrim. Starting to grow gram-negative cesario. Subjective: Resting comfortably. Wishes to be discharged home Objective: Vital Signs Temp Pulse Resp BP Pulse Ox 36.6 C 85 15 96/66 L 97 04/08/17 08:00 04/08/17 08:00 04/08/17 08:00 04/08/17 08:00 04/08/17 08:00 Laboratory Results 04/08/17 04:40 04/08/17 04:40 04/07/17 04/08/17 04/09/17 05:59 05:59 05:59 Intake Total 5038 Balance 5038 Physical Exam - Physical Exam General Appearance: alert, no apparent distress EENT: PERRL/EOMI, normal ENT inspection Neck: non-tender, full range of motion, supple, normal inspection Respiratory: chest non-tender, lungs clear, normal breath sounds Cardiac/Chest: normal peripheral pulses, regular rate, rhythm Abdomen: normal bowel sounds, non-tender, soft Pelvic Exam: deferred Rectal: deferred Skin: normal color, warm/dry ICD10 Worksheet Patient Problems: Problems Problem Status Onset Alcohol withdrawal Acute
[2017-04-08] MEDS: THIAMINE HCL 100 MG TAB PO SCH (09:39)
[2017-04-08] MEDS: ENOXAPARIN 40 MG/0.4 ML SYR SC SCH (09:39)
[2017-04-08] MEDS: chlordiazePOXIDE 25 MG CAP PO SCH ×3 (09:40→22:07)
[2017-04-08] MEDS: FOLIC ACID 1 MG TAB PO SCH (09:40)
[2017-04-08] MEDS: MULTIVITAMINS 1 EACH TAB PO SCH (09:40)
[2017-04-08] MEDS: SULFAMETHOX/TMP 800/160 MG 1 TAB PO SCH ×2 (09:40→22:07)
[2017-04-08] MEDS: NICOTINE 21 MG/24 HR PATCH TD SCH (09:46)
--- NOTE | 2017-04-08 11:21 | HOSPPROG ---
Hospitalist Progress Note Assessment/Plan: Alcohol withdrawal - EM's 13 -wean scheduled librium -prn ativan -thiamine, folic acid, vits Polysubstance abuse - endorses "casual" cocaine use, UDS positive for amphetamine UTI - oral bactrim, lauren-sensitive e coli on Cx AGMA - likely secondary to etoh, resolved with IVF's Full code Dispo - change to inpt for ongoing care of alcohol withdrawal, transfer to med/ surg Pt interested in ongoing treatment, CM to review resource options, though difficult with medicaid payor. Subjective: Pt more interactive today, though still tremulous. No hallucinations. She is interested in maintaining sobriety. Objective: Vital Signs Temp Pulse Resp BP Pulse Ox 36.6 C 85 15 96/66 L 97 04/08/17 08:00 04/08/17 08:00 04/08/17 08:00 04/08/17 08:00 04/08/17 08:00 Laboratory Results 04/08/17 04:40 04/08/17 04:40 04/07/17 04/08/17 04/09/17 05:59 05:59 05:59 Intake Total 5038 Balance 5038 - Physical Exam Constitutional: no apparent distress Eyes: PERRL Ears, Nose, Mouth, Throat: moist mucous membranes Cardiovascular: regular rate and rhythym Respiratory: no respiratory distress, clear to auscultation Gastrointestinal: normoactive bowel sounds, soft, non-tender abdomen Skin: warm Musculoskeletal: full muscle strength Neurologic: AAOx3 Psychiatric: interacting appropriately ICD10 Worksheet Patient Problems: Problems Problem Status Onset Alcohol withdrawal Acute
[2017-04-08 19:46] VITALS: RESP 16
[2017-04-09 04:50] LABS: % IMMATURE GRANULYOCYTES 0.3 % (0.0-1.1); ABSOLUTE IMMATURE GRANULOCYTES 0.02 10^3/uL (0.00-0.10); ADD DIFF? NO; ADD MORPH? NO; ADD SCAN? NO; ATYPICAL LYMPHOCYTE FLAG 0 (0-99); FRAGMENT RBC FLAG 0 (0-99); HEMATOCRIT 42.2 % (38.0-47.0); HEMOGLOBIN 14.4 g/dL (12.6-16.3); LEFT SHIFT FLG 0 (0-99); LIPEMIA HEMOLYSIS FLAG 90 (0-99); MEAN CELL HEMOGLOBIN 31.9 pg (27.9-34.1); MEAN CELL HEMOGLOBIN CONCENTR. 34.1 g/dL (32.4-36.7); MEAN CELL VOLUME 93.4 fL (81.5-99.8); MEAN PLATELET VOLUME 9.1 fL (8.7-11.7); PLATELET CLUMPS FLAG 0 (0-99); PLATELET COUNT 286 10^3/uL (150-400); RED BLOOD CELL COUNT 4.52 10^6/uL (4.18-5.33); RED CELL DISTRIBUTION WIDTH 14.5 % (11.5-15.2)
[2017-04-09] MEDS: ACETAMINOPHEN 325 MG TAB PO PRN (04:54)
[2017-04-09 05:13] LABS: ANION GAP 10 mEq/L (8-16); CALCIUM 10.2 mg/dL (8.5-10.4); CARBON DIOXIDE 28 mEq/l (22-31); CHLORIDE 97 mEq/L (97-110); CREATININE 0.9 mg/dL (0.6-1.0); GLOMERULAR FILTRATION RATE > 60; GLUCOSE 75 mg/dL (70-100); MAGNESIUM 1.7 mg/dL (1.6-2.3); POTASSIUM 4.2 mEq/L (3.5-5.2); SODIUM 135 mEq/L (134-144)
[2017-04-09] MEDS: SULFAMETHOX/TMP 800/160 MG 1 TAB PO SCH (08:40)
[2017-04-09] MEDS: THIAMINE HCL 100 MG TAB PO SCH (08:40)
[2017-04-09] MEDS: MULTIVITAMINS 1 EACH TAB PO SCH (08:40)
[2017-04-09] MEDS: FOLIC ACID 1 MG TAB PO SCH (08:40)
[2017-04-09] MEDS: chlordiazePOXIDE 25 MG CAP PO SCH (08:40)
[2017-04-09] MEDS: NICOTINE 21 MG/24 HR PATCH TD SCH (08:40)
[2017-04-09] MEDS: ENOXAPARIN 40 MG/0.4 ML SYR SC SCH (08:41)
[2017-04-09] MEDS ORDERED: THIAMINE HCL 100 MG TAB PO SCH (09:00)
[2017-04-09 10:01] VITALS: BP 95/62; PULSE 91; TEMP 98.4; O2SAT 94
--- NOTE | 2017-04-09 17:29 | ASDISCHSUM ---
Discharge Information Plan Status:Home with No Needs Medically Cleared to Leave: Discharge Date:04/09/2017 11:19 AM CM D/C Disposition:Home, Routine, Self-Care ADT D/C Disposition:Home, Routine, Self-Care Projected Discharge Date:04/09/2017 11:19 AM Transportation at D/C:Family Discharge Delay Reason: Follow-Up Date:04/09/2017 11:19 AM Discharge Slot: Final Diagnosis: Placement Information Patient Contact Information Contact Name:STEPH Relationship:Mother Address:[address] [place] City:[facility] Phone: [facility]/Zip Code:[place] [address] Email: Financial Information Financial Class:MD Primary Plan Desc:[employer] [place] Primary Plan Number:[id number] Secondary Plan Desc: Secondary Plan Number: Assessment Information Intervention Information
--- NOTE | 2017-04-10 01:55 | GDS ---
[f rep st] DISCHARGE SUMMARY DISCHARGE DIAGNOSES: 1. Alcohol withdrawal, presenting with seizure. Improved. 2. Polysubstance abuse including cocaine, methamphetamine, and alcohol. 3. Urinary tract infection. Treated with 3 days of Bactrim. 4. Anion gap metabolic acidosis, likely secondary to alcohol. This resolved with IV fluids. CONSULTANTS: Dr. Krunal Person, dental office coordinator. HISTORY: For details, please see the History and Physical dated April 06. In brief, the patient i s a 32-year-old female with a history of polysubstance abuse and recent hospitalization for alcohol withdrawal. Returns to the emergency department after a witnessed seizure, in active withdrawal. S he is admitted to the hospital for further management. HOSPITAL COURSE: Patient admitted to the intensive care unit. She had significant withdrawal sympt oms and required quite a bit of IV Ativan, though did not ultimately require Precedex. She was shun ree with scheduled Librium and p.r.n. Ativan. Her scheduled Librium dose was weaned. She will be d ischarged to continue 2 more days of 25 mg twice daily Librium. Her CIWA was down to 5. She does r eport wishing to maintain abstinence. She admitted to casual cocaine and amphetamine use, stating t hat she will do anything while she is drinking. She met with our bottle caser, and was given a phon e number for outpatient treatment program. Unfortunately, her Medicaid insurance will not cover inp atient treatment options. She plans to go to a women's Alcoholics Anonymous group. DISPOSITION: Patient is discharged home in stable condition. FOLLOWUP: She is to follow up with her primary care physician. DISCHARGE MEDICATIONS: Please see [employer] for completed outpatient medication list. New medicatio ns on discharge include Librium 25 mg p.o. twice daily #4, no refills; folic acid 1 mg p.o. daily; m ultivitamin 1 p.o. daily; and thiamine 100 mg p.o. daily. /[id number]/MODL
== END 2017-04-09 11:19 | disposition home or self-care (01) | DRG 897 ==
LOC: F2N 07:46 → OBSVTOIN 04-07 11:34 → F3E 04-08 12:46
PROVIDERS: ADMIT Internal Medicine; ATTEND Internal Medicine
CPT/HCPCS: 80307; 96374; 97161-GP; G0378; G0480; J1650; J2060; J2405; J2560; J3411